=== PATIENT | female | born 1970 | race American Indian/Alaskan Native ===

== ENCOUNTER 2017-09-22 14:47 | Emergency (ER) | payer OTHER ==
[2017-09-22 14:56] VITALS: BP 137/97
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
== END 2017-09-22 15:58 | disposition left against medical advice (07) ==
LOC: ED 14:47
DX: M19.90 Unspecified osteoarthritis, unspecified site (principal)
CPT/HCPCS: 99282

== ENCOUNTER 2018-01-26 16:46 | Emergency (ER) | payer OTHER ==
[2018-01-26 16:54] VITALS: BP 141/89
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
[2018-01-26] MEDS: NORCO 5/325 PO ONE (18:50)
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
== END 2018-01-26 19:40 | disposition home or self-care (01) ==
LOC: ED 16:46
DX: M25.561 Pain in right knee (principal); V49.49XA Driver injured in collision with other motor vehicles in traffic accident, initial encounter; Y93.89 Activity, other specified; Y92.89 Other specified places as the place of occurrence of the external cause; Y99.8 Other external cause status